=== PATIENT | male | born 1960 | race Caucasian/White ===

== ENCOUNTER 2018-09-10 10:37 | Outpatient (CLI) | payer OTHER, SELFPAY ==
[2018-09-10 12:16] LABS: Anion Gap 13.2 mmol/L (3-11); BUN 13 mg/dL (7-18); CO2 24.8 mmol/L (21.0-32.0); Calcium 8.8 mg/dL (8.5-10.1); Chloride 101 mmol/L (98-107); Cholesterol 111 mg/dL (50-200); Glucose 84 mg/dL (70-100); HDL Cholesterol 40 mg/dL (40-60); LDL CHOLESTEROL 62 mg/dL (<100); Potassium 3.9 mmol/L (3.5-5.1); Sodium 139 mmol/L (136-145); Triglyceride 40 mg/dL (30-150)
[2018-09-12 11:36] LABS: HIV-1/2 Ag & Ab Screen Negative (NEGAT)
[2018-09-13 12:14] LABS: Hepatitis C Ab w Rflx HCV PCR Negative (NEGAT)
== END 2018-09-10 10:57 ==
PROVIDERS: PCP Nurse Practitioner Family; Visit Provider Nurse Practitioner Family
DX: E78.5 Hyperlipidemia, unspecified (principal); Z13.1 Encounter for screening for diabetes mellitus; Z11.59 Encounter for screening for other viral diseases; Z11.4 Encounter for screening for human immunodeficiency virus [HIV]
CPT/HCPCS: 36415; 80048; 80061; 83721; 86803; 87389

== ENCOUNTER 2020-01-09 09:34 | Outpatient (CLI) | payer OTHER, SELFPAY ==
[2020-01-10 18:04] LABS: COVID-19 RT-PCR Result NEGATIVE (Negative)
== END 2020-01-09 09:54 ==
PROVIDERS: PCP Nurse Practitioner Family; Visit Provider Nurse Practitioner Family
DX: Z11.59 Encounter for screening for other viral diseases (principal)
CPT/HCPCS: U0003

== ENCOUNTER 2020-02-14 01:17 | Outpatient (CLI) | payer OTHER, SELFPAY ==
[2020-02-14 13:27] LABS: Anion Gap 11.4 mmol/L (3-11); BUN 14 mg/dL (7-18); CO2 26.6 mmol/L (21.0-32.0); CREATININE 0.89 mg/dL (0.70-1.30); Calculated LDL 59 mg/dL (<100); Chloride 106 mmol/L (98-107); Cholesterol 108 mg/dL (<200); Glucose 90 mg/dL (74-106); HDL Cholesterol 37 mg/dL (40-60); Potassium 4.3 mmol/L (3.5-5.1); Sodium 144 mmol/L (136-145); Triglyceride 62 mg/dL (<150)
== END 2020-02-14 01:37 ==
PROVIDERS: PCP Nurse Practitioner Family; Visit Provider Nurse Practitioner Family
DX: E78.5 Hyperlipidemia, unspecified (principal); Z13.1 Encounter for screening for diabetes mellitus
CPT/HCPCS: 36415; 80048; 80061

== ENCOUNTER 2020-03-13 03:54 | Outpatient (CLI) | payer OTHER, SELFPAY ==
[2020-03-14 10:25] LABS: Lyme Ab w Rflx to Lyme Confirm Negative (Negative)
== END 2020-03-13 04:14 ==
PROVIDERS: PCP Nurse Practitioner Family; Visit Provider Nurse Practitioner Family
DX: R21 Rash and other nonspecific skin eruption (principal)
CPT/HCPCS: 36415; 86618

== ENCOUNTER 2021-10-24 04:27 | Outpatient (CLI) | payer OTHER, SELFPAY ==
[2021-10-24 07:18] LABS: HCT 43.8 % (40.0-50.0); HGB 14.2 g/dL (13.5-17.5); MCH 30.5 pg (27.0-33.0); MCHC 32.4 % (32.0-36.0); MCV 94.2 fL (80-95); MPV 9.3 fL (8.0-11.0); Platelet Count 257 10^3/uL (130-400); RBC 4.65 10^6/uL (4.36-5.78); RDW 12.3 % (11.8-14.1); RDW-SD 42.7 fL; WBC 6.77 10^3/uL (4.4-10.8)
[2021-10-24 07:57] LABS: ALT 48 U/L (16-63); AST 28 U/L (15-37); Alkaline Phosphatase 96 U/L (46-116); Anion Gap 4.9 mmol/L (3-11); BUN 15 mg/dL (7-18); Bilirubin, Total 0.8 mg/dL (0.2-1.0); CO2 31.1 mmol/L (21.0-32.0); CREATININE 0.8 mg/dL (0.70-1.30); Calcium 8.8 mg/dL (8.5-10.1); Calculated LDL 50 mg/dL (<100); Chloride 105 mmol/L (98-107); Cholesterol 95 mg/dL (<200); Glucose 93 mg/dL (74-106); HDL Cholesterol 36 mg/dL (40-60); Potassium 4.3 mmol/L (3.5-5.1); Sodium 141 mmol/L (136-145); Total Protein 6.8 g/dL (6.4-8.2); Triglyceride 47 mg/dL (<150)
== END 2021-10-24 04:28 | disposition home or self-care (01) ==
LOC: LBO 04:27
PROVIDERS: PCP Nurse Practitioner Family; Visit Provider Nurse Practitioner Family
DX: Z51.81 Encounter for therapeutic drug level monitoring (principal); E78.5 Hyperlipidemia, unspecified; I25.10 Atherosclerotic heart disease of native coronary artery without angina pectoris; Z13.1 Encounter for screening for diabetes mellitus
CPT/HCPCS: 36415; 80053; 80061; 85027

== ENCOUNTER 2022-10-30 03:07 | Outpatient (CLI) | payer OTHER, SELFPAY ==
[2022-10-30 07:22] LABS: Abs Immature Grans 0.02 10^3/uL (0.0-0.06); Absolute Basophil Count 0.05 10^3/uL (0.0-0.2); Absolute Eosinophil Count 0.17 10^3/uL (0.0-0.7); Absolute Lymphocyte Count 2.13 10^3/uL (1.2-3.4); Absolute Monocyte Count 0.69 10^3/uL (0.1-0.8); Absolute Neutrophil Count 3.53 10^3/uL (1.2-6.7); Basophils % 0.8; Eosinophils % 2.6; HCT 44.4 % (40.0-50.0); HGB 14.8 g/dL (13.5-17.5); Immature Grans % 0.3; Lymphocytes % 32.3; MCH 31.3 pg (27.0-33.0); MCHC 33.3 % (32.0-36.0); MCV 94 fL (80-95); MPV 9.5 fL (8.0-11.0); Monocytes % 10.5; Neutrophils % 53.5; Platelet Count 233 10^3/uL (130-400); RBC 4.73 10^6/uL (4.36-5.78); RDW 12.9 % (11.8-14.1); RDW-SD 44.1 fL; WBC 6.59 10^3/uL (4.4-10.8)
[2022-10-30 08:10] LABS: Hemoglobin A1C 6.1 % (<5.7)
[2022-10-30 08:24] LABS: BUN 15 mg/dL (7-18); CREATININE 0.9 mg/dL (0.70-1.30); Calcium 9.1 mg/dL (8.5-10.1); Calculated LDL 52 mg/dL (<100); Chloride 107 mmol/L (98-107); Cholesterol 107 mg/dL (<200); Estimated GFR 96.57 (mL/min/1.73m2); Glucose 105 mg/dL (74-106); HDL Cholesterol 47 mg/dL (40-60); Potassium 4.2 mmol/L (3.5-5.1); Sodium 145 mmol/L (136-145); Triglyceride 43 mg/dL (<150)
== END 2022-10-30 03:08 | disposition home or self-care (01) ==
LOC: LBO 03:07
PROVIDERS: PCP Nurse Practitioner Family; Visit Provider Nurse Practitioner Family
DX: R73.01 Impaired fasting glucose (principal); E78.5 Hyperlipidemia, unspecified; I25.10 Atherosclerotic heart disease of native coronary artery without angina pectoris; Z79.899 Other long term (current) drug therapy; Z51.81 Encounter for therapeutic drug level monitoring
CPT/HCPCS: 36415; 80048; 80061; 83036; 85025

== ENCOUNTER → 2023-06-02 01:09 | Outpatient (CLI) | payer OTHER, SELFPAY ==
--- NOTE | 2023-06-02 06:45 | DI.CT_ITS ---
Exam(s) CT ABDOMEN PELVIS W EXAM: CT ABDOMEN PELVIS W CLINICAL HISTORY: unintentional wt loss,lower abd bulge,r63.4,r19.00 TECHNIQUE: Imaging Protocol: Axial computed tomography images with coronal and sagittal reformatted images were created and reviewed CONTRAST MATERIAL: Intravenous: Omnipaque 350 Contrast volume:100 mL Oral: Yes COMPARISON: No exams were available for comparison FINDINGS: ABDOMEN: Lung Bases: Normal where visualized. Liver: Normal density. No measurable mass. Portal, Superior Mesenteric, and Splenic Veins: Unremarkable. Gallbladder and Biliary Tract: No radiodense calculus or dilation. Pancreas: Normal density, no abnormal calcifications or inflammatory process. Spleen: Normal. Adrenals: No masses seen. Kidneys: Normal size, contour and axis. Nonobstructing right nephrolithiasis. No evidence of obstruc tive uropathy on the left. There is a 1.3 cm simple cyst in the superior pole of the right kidney. There are few tiny hypodensities in the right kidney which are too small for further characterization . Abdominal Aorta: Abdominal portion non-dilated. Atherosclerosis. Bowel: No obstruction or bowel wall thickening. There is no evidence of appendicitis. Peritoneal Cavity: No ascites, collection or mesenteric inflammatory response. No free air. Lymph Nodes: Within normal limits. Bones: Within normal limits for the patient's age. Soft Tissues: There is a fat containing left inguinal hernia. There does appear to be a small right inguinal hernia containing a knuckle of unremarkable small bowel. PELVIS: Bladder: Symmetric distention, no gross wall thickening. Reproductive Organs: Enlarged prostate gland. Lymph Nodes: Within normal limits. Bones: Within normal limits for the patient's age. IMPRESSION: 1. No acute abdominal or pelvic process. 2. Right nephrolithiasis. No evidence of obstructive uropathy. 3. Enlarged prostate gland. RADIATION DOSE DELIVERED: Total DLP DATA REPOSITORY: All CT scans at this facility are submitted to the National Radiology Data Registry (NRDR) Dose Index Registry (DIR) with the [employer] (ACR). RADIATION OPTIMIZATION: All CT scans at this facility use at least one of these dose optimization te chniques: automated exposure control; mA and/or kV adjustment per patient size (includes targeted exa ms where dose is matched to clinical indication); or iterative reconstruction.
--- NOTE | 2023-06-02 07:52 | DI.RAD_ITS ---
Exam(s) XR CHEST 2V PA LATERAL EXAM: XR CHEST 2V PA LATERAL CLINICAL HISTORY: unintentional wt loss,r63.4 TECHNIQUE: 2D digital imaging was performed of the chest. Two images were obtained. PA and lateral views were obtained. COMPARISON: CR CHEST 2 VIEWS PA,LAT from 06/12/2014 FINDINGS: MEDIASTINUM: Normal. HEART: Normal. PULMONARY VASCULATURE: Normal. LUNGS: Clear. PLEURAL SPACE: No pleural effusion or pneumothorax. BONE:Within normal limits for the patient's age. OTHER FINDINGS:Normal. IMPRESSION: No acute pulmonary findings. DATA REPOSITORY: RADIATION DOSE DELIVERED:
[2023-06-02] MEDS: Barium Sulfate 2% W/V-Berry Smoothie 450 ML BTL PO (08:25)
[2023-06-02 08:33] LABS: Abs Immature Grans 0.02 10^3/uL (0.0-0.06); Absolute Basophil Count 0.05 10^3/uL (0.0-0.2); Absolute Eosinophil Count 0.11 10^3/uL (0.0-0.7); Absolute Lymphocyte Count 1.82 10^3/uL (1.2-3.4); Absolute Monocyte Count 0.65 10^3/uL (0.1-0.8); Absolute Neutrophil Count 6.49 10^3/uL (1.2-6.7); Basophils % 0.5; Eosinophils % 1.2; HCT 44.6 % (40.0-50.0); HGB 14.8 g/dL (13.5-17.5); Immature Grans % 0.2; Lymphocytes % 19.9; MCH 30.8 pg (27.0-33.0); MCHC 33.2 % (32.0-36.0); MCV 93 fL (80-95); MPV 9.2 fL (8.0-11.0); Monocytes % 7.1; Neutrophils % 71.1; Platelet Count 249 10^3/uL (130-400); RBC 4.81 10^6/uL (4.36-5.78); RDW 12.4 % (11.8-14.1); RDW-SD 42.5 fL; WBC 9.14 10^3/uL (4.4-10.8)
[2023-06-02 08:48] LABS: Bilirubin Negative (Negative); Blood Negative (Negative); Clarity Clear (Clear); Glucose Negative (Negative); Ketones Negative (Negative); Leukocyte Esterase Negative (Negative); Nitrite Negative (Negative); Specific Gravity 1.025 (1.005-1.025); Urobilinogen 0.2 mg/dL (Up to 0.2)
[2023-06-02 08:57] LABS: ALT 47 U/L (16-63); AST 30 U/L (15-37); Alkaline Phosphatase 103 U/L (46-116); Anion Gap 8.3 mmol/L (3-11); BUN 15 mg/dL (7-18); Bilirubin, Total 0.5 mg/dL (0.2-1.0); C-Reactive Protein 0.24 mg/dL (0.0-0.3); CO2 28.7 mmol/L (21.0-32.0); CREATININE 0.8 mg/dL (0.70-1.30); Calcium 9.4 mg/dL (8.5-10.1); Chloride 102 mmol/L (98-107); Estimated GFR 100.06 (mL/min/1.73m2); Glucose 101 mg/dL (74-106); Potassium 4.1 mmol/L (3.5-5.1); Sodium 139 mmol/L (136-145); TSH (W/Ref FT4) 3.14 uIU/mL (0.36-3.74); Total Protein 7.7 g/dL (6.4-8.2)
[2023-06-02] MEDS: Normal Saline - Diluent 50 ML VIAL IJ (09:47)
[2023-06-02] MEDS: Normal Saline Flush 10 ML SYR IVP (09:48)
[2023-06-02] MEDS: Omnipaque 350 MG/ML 100 ML BTL IJ (09:48)
[2023-06-03 10:06] LABS: Hepatitis C Ab w Rflx HCV PCR Negative (Negative)
[2023-06-03 10:34] LABS: HIV-1/2 Ag & Ab Screen Negative (Negative)
== END ==
PROVIDERS: PCP Nurse Practitioner Family; Visit Provider Nurse Practitioner Family
DX: R63.4 Abnormal weight loss (principal); Z11.4 Encounter for screening for human immunodeficiency virus [HIV]; E03.9 Hypothyroidism, unspecified; Z11.59 Encounter for screening for other viral diseases; Z12.5 Encounter for screening for malignant neoplasm of prostate; R19.09 Other intra-abdominal and pelvic swelling, mass and lump; N20.0 Calculus of kidney; N40.1 Benign prostatic hyperplasia with lower urinary tract symptoms
CPT/HCPCS: 36415; 80053; 84153; 86803; 87389; 71046; 74177; 81003; 84443; 85025; 86140; J3490

== ENCOUNTER 2023-10-27 03:59 | Outpatient (CLI) | payer OTHER, SELFPAY ==
[2023-10-27 13:12] LABS: ESR 1 mm/hr (0-20)
== END 2023-10-27 04:00 | disposition home or self-care (01) ==
LOC: LBO 04:01
PROVIDERS: Nurse Practitioner Family; Absent Provider Nurse Practitioner Adult Health; PCP Nurse Practitioner Adult Health; Visit Provider Nurse Practitioner Adult Health
DX: R63.4 Abnormal weight loss (principal)
CPT/HCPCS: 36415; 85652

== ENCOUNTER 2024-03-11 01:14 | Outpatient (CLI) | payer OTHER, SELFPAY ==
[2024-03-11 08:43] LABS: Calculated LDL 56 mg/dL (<100); Cholesterol 113 mg/dL (<200); HDL Cholesterol 49 mg/dL (40-60); Triglyceride 42 mg/dL (<150)
== END 2024-03-11 01:15 | disposition home or self-care (01) ==
LOC: LBO 01:15
PROVIDERS: PCP Nurse Practitioner Adult Health; Referring Provider Nurse Practitioner Adult Health; Visit Provider Nurse Practitioner Adult Health
DX: I25.10 Atherosclerotic heart disease of native coronary artery without angina pectoris (principal); E78.5 Hyperlipidemia, unspecified
CPT/HCPCS: 36415; 80061

== ENCOUNTER 2025-01-09 03:15 | Outpatient (CLI) | payer OTHER, SELFPAY ==
[2025-01-09 07:36] LABS: Anion Gap 7.4 mmol/L (3-11); BUN 20 mg/dL (7-18); CO2 29.6 mmol/L (21.0-32.0); CREATININE 0.8 mg/dL (0.70-1.30); Calcium 9.2 mg/dL (8.5-10.1); Calculated LDL 49 mg/dL (<100); Chloride 103 mmol/L (98-107); Cholesterol 105 mg/dL (<200); Estimated GFR 98.83 (mL/min/1.73m2); Glucose 91 mg/dL (74-106); HDL Cholesterol 49 mg/dL (>or=40); Potassium 3.9 mmol/L (3.5-5.1); Sodium 140 mmol/L (136-145); Triglyceride 36 mg/dL (<150)
[2025-01-09 07:52] LABS: Hemoglobin A1C 5.8 % (<5.7)
== END 2025-01-09 03:16 | disposition home or self-care (01) ==
PROVIDERS: PCP Nurse Practitioner Adult Health; Referring Provider Nurse Practitioner Adult Health; Visit Provider Nurse Practitioner Adult Health
DX: E78.5 Hyperlipidemia, unspecified (principal); R73.01 Impaired fasting glucose; I25.10 Atherosclerotic heart disease of native coronary artery without angina pectoris
CPT/HCPCS: 36415; 80048; 80061; 83036

== ENCOUNTER 2025-04-15 11:15 | Inpatient (IN) | payer OTHER, SELFPAY ==
[2025-04-15] VITALS (12 sets, daily range): BP systolic 111–133; BP diastolic 65–83; PULSE 63–84; RESP 16–18; TEMP 36–37.1; O2SAT 94–99; BMI 19.8
--- NOTE | 2025-04-15 11:30 | DI.CT_ITS ---
Exam(s) CT ABDOMEN PELVIS W EXAM: CT ABDOMEN PELVIS W CLINICAL HISTORY: Left groin pain x 48 hrs. TECHNIQUE: Imaging Protocol: Axial computed tomography images with coronal and sagittal reformatted images were created and reviewed CONTRAST MATERIAL: Intravenous: Omnipaque-350 100cc Oral: None COMPARISON: CT CT ABDOMEN PELVIS W from 06/02/2023 FINDINGS: VISUALIZED LUNG BASES: No nodules nor pleural effusions evident. ABDOMEN: GI ABDOMINAL WALL: There is a left inguinal hernia which contains part of the sigmoid and there is an element of obstruction at this level with significant dilatation of the colon above this level and collapse of the sigmoid below this level. There is also some ascites in dependent aspect of the pelvis which is most probably related to this incarcerated appearing sigmoid. There is no obvious perforation at this time. No pneumatosis. There is no significant diverticular disease in the colon. However, the collapsed colon distal to the inguinal hernia has appearance of a possible colitis pattern. LIVER: There are no focal hepatic lesions evident. No dilated intrahepatic ducts. GALLBLADDER/BILIARY: No obvious gallbladder pathology. CBD is not dilated. PANCREAS: No evidence of pancreatic mass nor dilatation of the pancreatic duct. SPLEEN: Spleen is not enlarged. No obvious intrasplenic lesions. Splenic and portal veins are patent. ADRENALS: There are no significant adrenal masses. KIDNEYS:No cysts evident. No solid renal masses. No calculi nor hydronephrosis.. ABDOMINAL AORTA: Abdominal aorta is not enlarged. LYMPH NODES:There is no retroperitoneal nor paraaortic adenopathy. PELVIS: GI: No evidence of appendicitis. LYMPH NODES: There is no intrapelvic nor inguinal adenopathy. REPRODUCTIVE: Mildly enlarged prostate with lobulation projecting into the bladder with some enhancement. Requires further testing/serology consult. URINARY BLADDER: Bladder mass versus lobulated prostate. OSSEOUS: No fractures and no significant osseous lesions. IMPRESSION: 1. The main acute finding here is incarceration of the sigmoid in a large left inguinal hernia with an element of bowel obstruction at this level and some ascites in the dependent aspect of the pelvis. Surgical consultation is recommended. 2. There is mucosal/mural circumferential thickening of the rectosigmoid distal to the hernia which has a colitis appearance. This may or may not be related to the incarcerated sigmoid 3. There is an partially enhancing polypoid lesion projecting into the posterior urinary wall which is possibly lobulated prostate/possible prostate malignancy versus is urinary bladder wall malignancy. Recommend PSA testing and neurology consultation/is cos be. Pulmonary virtual Radiology report was reviewed. It appears that the critical findings on this case were called by the virtual Radiology radiologists to the ER provider. RADIATION DOSE DELIVERED: 318.9mGy.cm Total DLP DATA REPOSITORY: All CT scans at this facility are submitted to the National Radiology Data Registry (NRDR) Dose Index Registry (DIR) with the [employer] (ACR). RADIATION OPTIMIZATION: All CT scans at this facility use at least one of these dose optimization techniques: automated exposure control; mA and/or kV adjustment per patient size (includes targeted exams where dose is matched to clinical indication); or iterative reconstruction.
--- NOTE | 2025-04-15 11:51 | ED.GENADUL_ITS ---
Discharge Plan Disposition Patient Disposition: Admit to [facility] Condition: Serious Discharge Details Clinical Impression: Incarcerated left inguinal hernia, Bladder mass Attending Provider: Nikkie Ramon Primary Care Provider: Karely Ludwig ED Provider: Nick Villarreal Discharge Data Discharge Date/Time-TO BE ENTERED AT DEPARTURE: 04/15/25 14:59 HPI General Mode of arrival: ambulatory . Date/Time Provider Initiated Documentation: 04/15/25 11:26 . Limitations to Documentation: no limitations . Information obtained by: patient, RN notes reviewed and old records reviewed . HPI Narrative: 64-year-old male presents to the ER with a chief complaint of left inguinal pain and swelling which got worse on Thursday. He reports a history of an inguinal hernia however was at work and noticed that it had gotten larger and more firm he also is reporting some more proximal abdominal pain with palpation. He reports some constipation, no nausea vomiting. He has been taking 250 mg of Tylenol at home with little to no relief. Denies any problems urinating however he does have a history of BPH and has some hesitancy. Denies any fever or chills. He describes the pain as sharp. Does have a past medical history of hypertension, history of a CABG in 1995, BPH and kidney stones. Related Data Home Medications ?Medication ?Instructions ?Recorded ?Confirmed aspirin 81 mg chewable tablet 81 mg PO DAILY 11/08/12 04/15/25 (Aspirin Low-Strength) calcium carbonate (Tums) 200 mg PO DAILY PRN acid ref lux 11/01/21 04/15/25 blood-glucose meter #1 ea 11/07/22 01/12/25 atorvastatin 80 mg tablet See Rx Instructions .Route 0 01/12/25 04/15/25 .COMPLEX #90 tabs blood sugar diagnostic (Blood #100 ea 01/12/25 5 Glucose Test strips) lancets #100 ea 01/12/25 01/12/25 metoprolol tartrate 25 mg tablet See Rx Instructions . Route 01/12/25 04/15/25 .COMPLEX #180 tabs Previous Rx's ?Medication ?Instructions ?Recorded blood-glucose meter #1 ea 11/07/22 atorvastatin 80 mg tablet See Rx Instructions .Route 0 01/12/25 .COMPLEX #90 tabs blood sugar diagnostic (Blood #100 ea 05/22/25 Glucose Test strips) lancets #100 ea 01/12/25 metoprolol tartrate 25 mg tablet See Rx Instructions . Route 01/12/25 .COMPLEX #180 tabs Allergies Allergy/AdvReac Type Severity Reaction Status Date / Time Shield Soap Allergy Intermediate Hands Uncoded 04/15/25 11:22 Break Out General Stated Complaint: Abd Prob LUIS: 3 Review of Systems Constitutional Constitutional: Reports as per HPI Cardiovascular Cardiovascular: Denies chest pain Gastrointestinal Gastrointestinal: Reports as per HPI, Reports abdominal pain, Reports constipation and Reports other (Left inguinal canal mass) Genitourinary Genitourinary: Reports as per HPI and Reports urinary hesitancy Exam Narrative Exam Narrative: Constitutional: Alert and oriented x3. Appears stated age. Normal body habitus. Head: Normocephalic, no trauma. Eyes: Pupils PERRL, Red reflex noted, EOM's intact. Eyelids symmetrical without lesions, discharge, or swelling. ENT: Bilateral TM's WNL, External ear normal to inspection, no mastoid TTP, swelling, or erythema, Nasal turbinates WNL, no nasal discharge. Normal dentition, Posterior pharynx WNL, no exudate. Chest: RRR, Normal S1, S2, distal pulses intact. Resp: Lungs clear to auscultation bilaterally, no wheezes, rales, or rhonchi. Abdomen: Soft, non-distended, Normoactive bowel sounds all 4 quads. Has approximately 4 cm x 3 cm left inguinal firm mass to palpation, unable to be reduced, it does slightly disappear and left testicle swells with sitting up. Musculoskeletal: Normal gait, Moves all 4 extremities without difficulty. Skin: No suspicious rashes or lesions. Capillary refill less than 2 sec. Neurologic: Cranial nerves II-XII intact. Alert and oriented x 3. Motor: No deficits noted. Sensory: Intact bilaterally all 4 extremities. Hematologic/Lymphatic: No ecchymosis, no lymphadenopathy. Course Vital Signs Vital signs: Vital Signs Temperature 36.7 C 04/15/25 11:18 Pulse 83 04/15/25 11:18 Respiratory Rate 16 04/15/25 11:18 Blood Pressure 119/76 04/15/25 11:18 Pulse Oximetry 96 04/15/25 11:18 Temperature 36.7 C 04/15/25 11:48 Temperature Source Oral 04/15/25 11:48 Pulse 83 04/15/25 11:48 Respiratory Rate 16 04/15/25 11:48 Blood Pressure 119/76 04/15/25 11:48 Pulse Oximetry 96 04/15/25 11:48 Oxygen Delivery Method Room Air 04/15/25 11:48 Oxygen Flow Rate 0 04/15/25 11:48 Pain Level 4 04/15/25 11:48 Medical Decision Making 64-year-old male presents to the ER with a chief complaint of left inguinal pain and swelling which got worse on Thursday. He reports a history of an inguinal hernia however was at work and noticed that it had gotten larger and more firm he also is reporting some more proximal abdominal pain with palpation. He reports some constipation, no nausea vomiting. He has been taking 250 mg of Tylenol at home with little to no relief. Denies any problems urinating however he does have a history of BPH and has some hesitancy. Denies any fever or chills. He describes the pain as sharp. Does have a past medical history of hypertension, history of a CABG in 1995, BPH and kidney stones. Workup ordered including CBC CMP, lipase urinalysis CT abdomen pelvis with contrast. Differential diagnose includes not limited to inguinal hernia, incarcerated hernia, 1342: Received call for critical result from [facility] rad Dr. Fagan who reports left inguinal hernia with possible incarceration and obstruction containing sigmoid colon, Discussed CT results with patient who verbalized understanding last ate around 9:00 this morning. Instructed on n.p.o. status. 1354: Dr. Ramon here at for patient eval. Patient transported to the OR for emergent surgery for incarcerated bowel. Patient remained hemodynamically stable throughout the remainder of his stay. This text was generated using Tueeation system, please disregard any oddities of phrase or misspellings. Medical Records Medical records reviewed: Yes I reviewed the patient's medical records. Imaging Data Radiologic Study: Imaging: CT Scan Radiologist's impression: Preliminary vRad impression: 1. Large left inguinal hernia containing vessels and portion of colon near junction of descending colon with sigmoid colon with evidence of narrowing and wall thickening of colon at level of the hernia opening/mouth or neck, and dilation of proximal colon containing gas, fluid, and stool proximal to the hernia, with the colon distal to the hernia including sigmoid colon, rectum appearing decompressed, empty. Also evidence of vessels within, fluid, stranding, haziness, wall thickening of hernia. Findings are compatible with incarceration, possible strangulation of colon within left inguinal hernia with bowel obstruction of colon at the level of the left inguinal hernia. Wall/mucosal thickening of rectum, rectosigmoid, sigmoid colon extending to level of left inguinal hernia. Correlate for ischemic colitis or other process of rectum and sigmoid colon. 2. Small amount of pelvic fluid, ascites. 3. Wall thickening versus lack of distension urinary bladder. However, evidence of rounded mixed density, partially calcified or partially enhancing 1.4 cm polypoid or rounded lesion projecting intraluminal along posterior urinary bladder wall suspicious for malignant neoplasm or other process. Blood clot, mucosal fold, or other process possible. Follow-up, urology consultation, cystoscopy recommended. 4. Evidence of narrowing, flattening of left renal vein, duodenum, and portion of a left mesenteric vein extending to superior mesenteric vein, as they cross over anterior aspect of abdominal aorta between abdominal aorta, superior mesenteric artery, and near right renal artery. Correlate for superior mesenteric artery compression disorders such as superior mesenteric artery syndrome (Vijay syndrome), nutcracker syndrome (renal vein entrapment syndrome), or other process. 5. Atherosclerotic disease with suspicion for narrowing, stenosis of origins of the vessels off of the abdominal aorta including renal arteries, mesenteric arteries, celiac trunk/axis. 6. Please see body of report for additional findings. COMMENTS: THIS REPORT CONTAINS FINDINGS THAT MAY BE CRITICAL TO [facility]. The exam findings were verbally communicated by me to NICK VILLARREAL via telephone conference at 1:42 PM EDT on 04/15/2025. The findings were acknowledged and understood. Thank you for allowing us to participate in the care of your patient. Dictated and Authenticated by: Edwin Mattson MD Lab Data Lab results reviewed: Yes I reviewed the patient's lab results. Labs: Laboratory Tests Range/Units 04/15/25 04/15/25 11:40 12:30 WBC (4.4-10.8) 10^3/uL 10.55 RBC (4.36-5.78) 10^6/uL 5.04 Hgb (13.5-17.5) g/dL 15.5 Hct (40.0-50.0) % 46.7 MCV (80-95) fL 93 MCH (27.0-33.0) pg 30.8 MCHC (32.0-36.0) % 33.2 RDW (11.8-14.1) % 12.6 Plt Count (130-400) 10^3/uL 245 MPV (8.0-11.0) fL 9.4 Immature Gran % % 0.3 Neutrophils % % 78.5 Lymphocytes % % 13.1 Monocytes % % 7.1 Eosinophils % % 0.5 Basophils % % 0.5 Nucleated RBC % (0.0-0.3) % 0.0 Absolute Neutrophils (1.2-6.7) 10^3/uL 8.29 H Absolute Lymphocytes (1.2-3.4) 10^3/uL 1.38 Absolute Monocytes (0.1-0.8) 10^3/uL 0.75 Absolute Eosinophils (0.0-0.7) 10^3/uL 0.05 Absolute Basophils (0.0-0.2) 10^3/uL 0.05 Sodium (136-145) mmol/L 141 Potassium (3.5-5.1) mmol/L 3.4 L Chloride (98-107) mmol/L 102 Carbon Dioxide (21.0-32.0) mmol/L 31.4 Anion Gap (3-11) mmol/L 7.6 BUN (7-18) mg/dL 13 Creatinine (0.70-1.30) mg/dL 0.9 Est GFR (CKD-EPI 2020) (mL/min/1.73m2) 95.37 Glucose (74-106) mg/dL 119 H Calcium (8.5-10.1) mg/dL 9.6 Magnesium (1.8-2.4) mg/dL 2.2 Total Bilirubin (0.2-1.0) mg/dL 0.9 AST (15-37) U/L 33 ALT (16-63) U/L 41 Alkaline Phosphatase (46-116) U/L 116 Total Protein (6.4-8.2) g/dL 8.0 Albumin (3.4-5.0) g/dL 4.5 Urine Color (Yellow) Yellow Urine Clarity (Clear) Clear Urine pH (5-8) 5.0 Ur Specific Wagoner (1.005-1.025) >= 1.030 H Urine Protein (Neg-Trace) mg/dL Negative Urine Ketones (Negative) mg/dL 40 H Urine Blood (Negative) Trace-intact H Urine Nitrite (Negative) Negative Urine Bilirubin (Negative) Small H Urine Urobilinogen (Up to 0.2) mg/dL 0.2 Ur Leukocyte Esterase (Negative) Negative Urine RBC (0-2) HPF 3-5 H Urine WBC (0-5) HPF 0-2 Ur Epithelial Cells (Negative) HPF Rare Urine Crystals (Negative) HPF Negative Urine Bacteria (Negative) HPF Few Urine Casts (Negative) LPF Negative Urine Mucus (Negative) Moderate Ur Culture Indicated? No Urine Glucose (Negative) mg/dL Negative Quality:SDOH Health Related Social Needs: Health related social needs education Health related social needs details na PFSH All Active Problems (Updated 04/15/25 @ 14:59 by Nick Villarreal NP) Bladder mass (Acute) Incarcerated left inguinal hernia (Acute) Incarcerated left inguinal hernia (Acute) Non-recurrent inguinal hernia of left side with obstruction (Acute) BPH w urinary obs/LUTS (Chronic) Inguinal hernia bilateral, non-recurrent (Acute ~05/2023) IFG (impaired fasting glucose) (Acute) ASCVD (arteriosclerotic cardiovascular disease) (Chronic 09/17/12) SD, 3v CABG 1995 at age 35; high intensity statin Erectile dysfunction (Chronic 09/17/12) Gastroesophageal reflux disease (Chronic 01/03/15) Hyperlipidemia, unspecified (Chronic 09/17/12) 01/2020 labs: adequate response to high intensity statin therapy (ASCVD), continue Medical History Right nephrolithiasis (~05/2023) Enlarged prostate (~05/2023) CT Vertigo (01/03/16) 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 Carotid stenosis Parkinson disease Sister Diabetes Maternal Grandmother Breast cancer Social History Smoking/Tobacco Use Status: Never Smoking risk assessment performed?: Yes Alcohol Intake: current Alcohol Intake frequency: holidays/special occasions only Alcohol type: beer Drug use: Never Substance use type: does not use Adopted: No Caregiver/Support person: No Foster care: No Household members: none Housing: house Number of Children: 0 number of grandchildren: 0 Communication Needs: None Education Level: high school Do you need help understanding health information?: Rarely current occupation: [employer] Operator Pets and animals: No Sexually active: No Do you think of yourself as: straight/heterosexual Current gender identity: male What is your relationship status?: How often do you talk on the phone with friends or family?: once per week How often do you get together with friends or relatives?: once per week How often do you attend christianity or latter-day services?: decline to answer Do you belong to any clubs or organized social groups?: no Panel score (0-1 are the most socially isolated patients): 0 What type of physical activity do you participate in: running Duration: 15-30 minutes/day Frequency: 1-2 times per week Valeri/Restoration: Zoroastrianism Seatbelt use: always Helmet use: Yes Helmet use: never Drive intox or ride w/intox cdl a driver: No Water heater temp set <120 deg: Yes Working smoke detector in home: Yes Carbon monox detector in home: Yes Do you feel safe at home: Yes Do you feel safe in your relationship?: Yes
[2025-04-15 11:55] LABS: Abs Immature Grans 0.03 10^3/uL (0.0-0.06); HCT 46.7 % (40.0-50.0); HGB 15.5 g/dL (13.5-17.5); Immature Grans % 0.3 %; MCH 30.8 pg (27.0-33.0); MCHC 33.2 % (32.0-36.0); MCV 93 fL (80-95); MPV 9.4 fL (8.0-11.0); Platelet Count 245 10^3/uL (130-400); RBC 5.04 10^6/uL (4.36-5.78); RDW 12.6 % (11.8-14.1); RDW-SD 42.9 fL; WBC 10.55 10^3/uL (4.4-10.8)
[2025-04-15 12:04] LABS: ALT 41 U/L (16-63); AST 33 U/L (15-37); Albumin 4.5 g/dL (3.4-5.0); Alkaline Phosphatase 116 U/L (46-116); Anion Gap 7.6 mmol/L (3-11); BUN 13 mg/dL (7-18); Bilirubin, Total 0.9 mg/dL (0.2-1.0); CO2 31.4 mmol/L (21.0-32.0); Calcium 9.6 mg/dL (8.5-10.1); Chloride 102 mmol/L (98-107); Estimated GFR 95.37 (mL/min/1.73m2); Glucose 119 mg/dL (74-106); Magnesium 2.2 mg/dL (1.8-2.4); Potassium 3.4 mmol/L (3.5-5.1); Sodium 141 mmol/L (136-145); Total Protein 8.0 g/dL (6.4-8.2)
[2025-04-15] MEDS: Normal Saline Flush 10 ML SYR IVP ×4 (12:27→20:16)
[2025-04-15] MEDS: Omnipaque 350 MG/ML 100 ML BTL IJ (12:27)
[2025-04-15] MEDS: Normal Saline - Diluent 50 ML VIAL IJ (12:28)
[2025-04-15] MEDS: ACETAMINOPHEN 1,000 MG/100 ML BAG 400 MG IVPB (12:47)
[2025-04-15 12:58] LABS: Glucose Negative (Negative)
[2025-04-15 13:05] LABS: WBC 0-2 HPF (0-5)
[2025-04-15 13:06] LABS: C & S Indicated? No
--- NOTE | 2025-04-15 14:02 | DI.VRAD_ITS ---
PROCEDURE INFORMATION: Exam: CT Abdomen And Pelvis With Contrast Exam date and time: 04/15/2025 12:14 PM Age: 64 years old Clinical indication: Abdominal pain; Localized; Left TECHNIQUE: Imaging protocol: Computed tomography of the abdomen and pelvis with contrast. COMPARISON: CT ABDOMEN PELVIS W 06/02/2023 10:09 AM FINDINGS: Lungs: Visualized portions lung bases included appear clear bilaterally. Liver: Normal. No mass. Gallbladder and biliary ducts: Possible fold or Phrygian cap configuration. No calcific stone seen of gallbladder. Mild prominence common duct, main/central intrahepatic bile ducts, similar to prior study. Pancreas: Visualization of pancreatic duct without marked dilation. Pancreas otherwise grossly unremarkable. Spleen: Spleen unremarkable. Adrenal glands: Adrenals unremarkable. Kidneys and ureters: Chronic small rounded partially exophytic hypodense lesion upper outer right kidney possibly cyst, appears similar to 06/02/2023. Stomach and bowel: Stomach appears mostly empty, decompressed. Wall thickening versus lack of distension stomach. Perhaps tiny diverticulum of terminal ileum region. Dilation of colon containing gas and fluid proximal to the left inguinal hernia with stripping, decompression or emptiness sigmoid colon and rectum distal to the left inguinal hernia. Appendix: No acute appendicitis seen. Intraperitoneal space: Small amount of pelvic fluid, ascites. No free intraperitoneal air seen. Vasculature: Atherosclerotic disease. Plaque with suspicion for narrowing, stenosis of origins of the vessels off of the abdominal aorta including renal arteries, mesenteric arteries, celiac trunk/axis. No aneurysm seen of abdominal aorta. Evidence of narrowing, flattening of left renal vein, duodenum, and portion of a left mesenteric vein extending to superior mesenteric vein, as they cross over anterior aspect of abdominal aorta between abdominal aorta, superior mesenteric artery, and near right renal artery. Correlate for superior mesenteric artery compression disorders such as superior mesenteric artery syndrome (Vijay syndrome), nutcracker syndrome (renal vein entrapment syndrome), or other process. Lymph nodes: Scattered small lymph nodes, nonspecific. Urinary bladder: Urinary bladder appears mostly empty, partly filled. Wall thickening versus lack of distension urinary bladder. However, evidence of rounded mixed density, partially calcified or partially enhancing 1.4 cm polypoid or rounded lesion projecting intraluminal along posterior urinary bladder wall suspicious for malignant neoplasm or other process. Blood clot, mucosal fold, or other process possible. Follow-up, urology consultation, cystoscopy recommended. Reproductive: Prostate appears enlarged, heterogeneous. Seminal vesicles unremarkable. Bones/joints: Curvature, degenerative changes spine. Soft tissues: Large left inguinal hernia containing vessels and portion of colon near junction of descending colon with sigmoid colon with evidence of narrowing and wall thickening of colon at level of the hernia opening/mouth or neck, and dilation of proximal colon containing gas, fluid, and stool proximal to the hernia, with the colon distal to the hernia including sigmoid colon, rectum appearing decompressed, empty. Also evidence of vessels within, fluid, stranding, haziness, wall thickening of hernia. Findings are compatible with incarceration, possible strangulation of colon within left inguinal hernia with bowel obstruction of colon at the level of the left inguinal hernia. Wall/mucosal thickening of rectum, rectosigmoid, sigmoid colon extending to level of left inguinal hernia. IMPRESSION: 1. Large left inguinal hernia containing vessels and portion of colon near junction of descending colon with sigmoid colon with evidence of narrowing and wall thickening of colon at level of the hernia opening/mouth or neck, and dilation of proximal colon containing gas, fluid, and stool proximal to the hernia, with the colon distal to the hernia including sigmoid colon, rectum appearing decompressed, empty. Also evidence of vessels within, fluid, stranding, haziness, wall thickening of hernia. Findings are compatible with incarceration, possible strangulation of colon within left inguinal hernia with bowel obstruction of colon at the level of the left inguinal hernia. Wall/mucosal thickening of rectum, rectosigmoid, sigmoid colon extending to level of left inguinal hernia. Correlate for ischemic colitis or other process of rectum and sigmoid colon. 2. Small amount of pelvic fluid, ascites. 3. Wall thickening versus lack of distension urinary bladder. However, evidence of rounded mixed density, partially calcified or partially enhancing 1.4 cm polypoid or rounded lesion projecting intraluminal along posterior urinary bladder wall suspicious for malignant neoplasm or other process. Blood clot, mucosal fold, or other process possible. Follow-up, urology consultation, cystoscopy recommended. 4. Evidence of narrowing, flattening of left renal vein, duodenum, and portion of a left mesenteric vein extending to superior mesenteric vein, as they cross over anterior aspect of abdominal aorta between abdominal aorta, superior mesenteric artery, and near right renal artery. Correlate for superior mesenteric artery compression disorders such as superior mesenteric artery syndrome (Vijay syndrome), nutcracker syndrome (renal vein entrapment syndrome), or other process. 5. Atherosclerotic disease with suspicion for narrowing, stenosis of origins of the vessels off of the abdominal aorta including renal arteries, mesenteric arteries, celiac trunk/axis. 6. Please see body of report for additional findings. COMMENTS: THIS REPORT CONTAINS FINDINGS THAT MAY BE CRITICAL TO PATIENT CARE. The exam findings were verbally communicated by me to NICK VILLARREAL via telephone conference at 1:42 PM EDT on 04/15/2025. The findings were acknowledged and understood. Dictated and Authenticated by: Edwin Mattson MD. Orderin Skip Lainez MD
--- NOTE | 2025-04-15 14:28 | ANES.PREOP_ITS ---
General Info Date of Service Date Performed: 04/15/25 Height: 5 ft 8 in Weight: 59.1 kg Body Mass Index (BMI): 19.8 Surgical Procedure: Operation Date: 04/15/25 14:20 Proposed Procedure Side Surgeon p Hernia Inguinal Laparoscopic Not Applicable Nikkie Ramon MD Meds Allergies and Home Medications Allergies Allergy/AdvReac Type Severity Reaction Status Date / Time Shield Soap Allergy Intermediate Hands Uncoded 04/15/25 11:22 Break Out Home Medication ?Medication ?Instructions ?Recorded aspirin 81 mg chewable tablet 81 mg PO DAILY 11/08/12 (Aspirin Low-Strength) calcium carbonate (Tums) 200 mg PO DAILY PRN acid ref lux 11/01/21 blood-glucose meter #1 ea 11/07/22 atorvastatin 80 mg tablet See Rx Instructions .Route 0 01/12/25 .COMPLEX #90 tabs blood sugar diagnostic (Blood #100 ea 01/12/25 Glucose Test strips) lancets #100 ea 01/12/25 metoprolol tartrate 25 mg tablet See Rx Instructions . Route 01/12/25 .COMPLEX #180 tabs Current Visit Medications: Current Medications Generic Name Dose Route Start Last Admin Trade Name Freq PRN Reason Stop Dose Admin IV Miscellaneous Supplies 1 each 04/15/25 11:45 Iv Access-Emergency Dept IV DIRECTED DYLAN Iohexol 100 ml 04/15/25 12:30 04/15/25 12:27 Omnipaque 350 Mg/Ml 100 Ml Btl IJ 05/15/25 23:59 100 ml DIRECTED DYLAN Administration Sodium Chloride 0 ml 04/15/25 11:34 Normal Saline Flush 10 Ml Syr IVP PRN PRN Sodium Chloride 0 ml 04/15/25 20:00 Normal Saline Flush 10 Ml Syr IVP BID DYLAN Sodium Chloride 0 ml 04/15/25 11:34 Normal Saline 10 Ml Vial IJ DIRECTED PRN Sodium Chloride 0 ml 04/15/25 12:18 04/15/25 12:27 Normal Saline Flush 10 Ml Syr IVP 10 ml PRN PRN Administration Sodium Chloride 50 ml 04/15/25 12:30 04/15/25 12:28 Normal Saline - Diluent 50 Ml Vial IJ 50 ml DIRECTED DYLAN Administration PFSH Active Problems Active Problems: Problem Status Onset Code BPH w urinary obs/LUTS Chronic N40.1, N13.8 Inguinal hernia bilateral, non-recurrent Acute ~05/2023 K40.20 IFG (impaired fasting glucose) Acute R73.01 ASCVD (arteriosclerotic cardiovascular disease) Chronic 09/17/12 I25.10 Erectile dysfunction Chronic 09/17/12 N52.9 Gastroesophageal reflux disease Chronic 01/03/15 K21.9 Hyperlipidemia, unspecified Chronic 09/17/12 E78.5 Medical History Medical History Right nephrolithiasis (~05/2023) Enlarged prostate (~05/2023) CT Vertigo (01/03/16) Probable BPPV Surgical History Surgical History Tonsillectomy Colonoscopy - MAC (04/24/17) Coronary Artery Bypass Gaft (CABG) 1995 Tobacco Smoking/Tobacco Use Status: Never Passive smoking exposure: No Alcohol Alcohol Intake: current Alcohol intake frequency: holidays/special occasions only Alcohol type: beer Substance Use Substance use: Never Substance use type: does not use Vital Signs and Lab Results Vital Signs Most Recent Vital Signs in EMR: Most Recent Vital Signs Temp Pulse Resp BP Pulse Ox 36.2 C L 67 16 111/65 96 04/15/25 12:57 04/15/25 12:57 04/15/25 12:57 04/15/25 12:57 04/15/25 11:48 Lab Results 04/15/25 11:40 04/15/25 11:40 Complete Blood Count: 2 WBC, (4.4-10.8) 10.55 10^3/uL Today, 11:40 RBC, (4.36-5.78) 5.04 10^6/uL Today, 11:40 Hgb, (13.5-17.5) 15.5 g/dL Today, 11:40 Hct, (40.0-50.0) 46.7 % Today, 11:40 Plt Count, (130-400) 245 10^3/uL Today, 11:40 Complete Metabolic Panel: 2 Sodium, (136-145) 141 mmol/L Today, 11:40 Potassium, (3.5-5.1) 3.4 mmol/L L Today, 11:40 Chloride, (98-107) 102 mmol/L Today, 11:40 Carbon Dioxide, (21.0-32.0) 31.4 mmol/L Today, 11:40 BUN, (7-18) 13 mg/dL Today, 11:40 Creatinine, (0.70-1.30) 0.9 mg/dL Today, 11:40 Est GFR (CKD-EPI 2020), (mL/min/1.73m2) 95.37 Today, 11:40 Magnesium, (1.8-2.4) 2.2 mg/dL Today, 11:40 Calcium, (8.5-10.1) 9.6 mg/dL Today, 11:40 Albumin, (3.4-5.0) 4.5 g/dL Today, 11:40 Glucose, (74-106) 119 mg/dL H Today, 11:40 Liver Function Panel: 2 ALT, (16-63) 41 U/L Today, 11:40 AST, (15-37) 33 U/L Today, 11:40 Coagulation Panel: 2 INR Pending Today, 13:53 PT Pending Today, 13:53 APTT Pending Today, 13:53 Anesthesia Assessment and Plan Anesthesia History Personal History: No History of Anesthesia Complications Family History: No Family History of Anesthesia Complications Exercise Tolerance Exercise Tolerance: Metabolic Equivalents>4 Pertinent Negatives Pertinent Negatives: Other (Takes raciel's for heartburn and occasional reflux) Cardiac & Pulmonary Exam Cardiac Exam: Normal S1/S2 Heart Sounds Pulmonary Exam: Clear Bilateral Breath Sounds Implantable Cardiac Device Does patient have a Pacemaker or an ICD?: No Airway Exam Known Difficult Airway: No Mallampati Class: 2 Mouth Opening: Normal (> 3cm) Thyromental Distance: Greater than 3 cm Neck Range of Motion: Full ROM Neck Circumference: Normal Teeth Condition: Normal Dentition ASA Classification ASA Score: ASA 3 Emergency Case?: Yes NPO Status NPO Status: NPO Small Non-Fatty Meal >6 hours Anesthesia Plan Resuscitation Status: Full Code Anesthesia Technique: General Anesthesia Airway Planned: Endotracheal Tube Monitors Used: Standard Monitors and SedLine
--- NOTE | 2025-04-15 14:35 | W.PM.HP.N ---
Date of service: 04/15/25 Time of Service: 14:36 Assessment and Plan Assessment and plan (1) Non-recurrent inguinal hernia of left side with obstruction: Status: Acute Assessment and plan: Incarcerated L inguinal hernia with obstruction. Duration of incarceration raises concern for possible strangulation. Plan preperitoneal laparoscopic approach reduction of hernia and evaluation of viability of sigmoid colon. If viable, will reduce and repair hernia with mesh. If nonviable will open and do a primary repair of hernia and resect the strangulated colon segment. He will need colostomy if resection is performed due to the obstruction and dilation of the more proximal colon. Discussed surgery plan risks, benefits, alternatives, and expectations. Discussed specifically the risks of the pain, bleeding, infection, damage to surrounding structures, need for more procedures. Discussed resection, colostomy, and colostomy reversal in the future. Discussed mesh vs no mesh for repair, and the risk of hernia recurrence after repair. Postoperative expectations and weight lifting restriction were discussed. No dietary restrictions postoperatively. The patient asked good questions and verbalized understanding. Bumping emergency to OR now. (2) Incarcerated left inguinal hernia: Status: Acute Assessment and plan: repair as noted above (3) ASCVD (arteriosclerotic cardiovascular disease): Status: Chronic Assessment and plan: ASA 81mg increases risk for bleeding. Will continue metoprolol perioperatively History of Present Illness History of Present Illness Chief Complaint: incarcerated obstructed left inguinal hernia Narrative: 64yo M who had worsening severe pain in the L groin in the last 2-3 days. He was doing a lot of squatting and strenuous work on and noticed his hernia bulge out and get stuck. normally he can reduce it but he was not able. The pain is sharp, intermittent, and tight. He had a small BM this morning and thinks he passed some gas as well. Hernia normally reduces but it had not and the pain was increasing so he came in. In er CT was done and shows obstructed colon due to incarcerated sigmoid colon. Denies fever or chills. CABG in 1995. Sees a mechanical manufacturing engineer every year and says his heart has been well since then. he is active in his job without dyspnea. no lung problems. Nonsmoker. No chest pain. no blood thinner. had hhis tonsils out years ago but otherwise no operations besides that and the cabg. Takes metoprolol 25mg BID, asa 81mg daily, atorvastatin daily. He is prediabetic he says and lost weight to help with that. Review of Systems All systems reviewed & are unremarkable except as noted in HPI and below PFSH All Active Problems (Updated 04/15/25 @ 14:43 by Nikkie Ramon MD) Incarcerated left inguinal hernia (Acute) Non-recurrent inguinal hernia of left side with obstruction (Acute) BPH w urinary obs/LUTS (Chronic) Inguinal hernia bilateral, non-recurrent (Acute ~05/2023) IFG (impaired fasting glucose) (Acute) ASCVD (arteriosclerotic cardiovascular disease) (Chronic 09/17/12) MS, 3v CABG 1995 at age 35; high intensity statin Erectile dysfunction (Chronic 09/17/12) Gastroesophageal reflux disease (Chronic 01/03/15) Hyperlipidemia, unspecified (Chronic 09/17/12) 01/2020 labs: adequate response to high intensity statin therapy (ASCVD), continue Medical History Right nephrolithiasis (~05/2023) Enlarged prostate (~05/2023) CT Vertigo (01/03/16) 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 Carotid stenosis Parkinson disease Sister Diabetes Maternal Grandmother Breast cancer Social History Smoking/Tobacco Use Status: Never Smoking risk assessment performed?: Yes Alcohol Intake: current Alcohol Intake frequency: holidays/special occasions only Alcohol type: beer Drug use: Never Substance use type: does not use Adopted: No Caregiver/Support person: No Foster care: No Household members: none Housing: house Number of Children: 0 number of grandchildren: 0 Communication Needs: None Education Level: high school Do you need help understanding health information?: Rarely current occupation: [employer] Pets and animals: No Sexually active: No Do you think of yourself as: straight/heterosexual Current gender identity: male What is your relationship status?: How often do you talk on the phone with friends or family?: once per week How often do you get together with friends or relatives?: once per week How often do you attend confucianism or anabaptism services?: decline to answer Do you belong to any clubs or organized social groups?: no Panel score (0-1 are the most socially isolated patients): 0 What type of physical activity do you participate in: running Duration: 15-30 minutes/day Frequency: 1-2 times per week Valeri/Synagogue: Nondenominational Seatbelt use: always Helmet use: Yes Helmet use: never Drive intox or ride w/intox tow truck driver: No Water heater temp set <120 deg: Yes Working smoke detector in home: Yes Carbon monox detector in home: Yes Do you feel safe at home: Yes Do you feel safe in your relationship?: Yes Meds Allergies and Home Medications Allergies Allergy/AdvReac Type Severity Reaction Status Date / Time Shield Soap Allergy Intermediate Hands Uncoded 04/15/25 11:22 Break Out Home Medications ?Medication ?Instructions ?Recorded ?Confirmed ?Type aspirin 81 mg chewable tablet 81 mg PO DAILY 11/08/12 04/15/25 History (Aspirin Low-Strength) calcium carbonate (Tums) 200 mg PO DAILY PRN acid reflux 11/01/21 04/15/25 History blood-glucose meter #1 ea 11/07/22 01/12/25 Rx atorvastatin 80 mg tablet See Rx Instructions .Route 01/12/25 04/15/25 Rx .COMPLEX #90 tabs blood sugar diagnostic (Blood #100 ea 01/12/25 01/12/25 Rx Glucose Test strips) lancets #100 ea 01/12/25 01/12/25 Rx metoprolol tartrate 25 mg tablet See Rx Instructions .Route 01/12/25 04/15/25 Rx .COMPLEX #180 tabs Exam Narrative Exam Narrative: awake, NAD eomi, MMM midline trachea, neck is symmetric PULM: normal resp effort, equal chest rise with respiration, no wheezing audible CARDIAC: normal PMI, no jvd, regular rate, normal perfusion abdomen is nondistended on exam. Incarcerated L inguinal hernia without skin change. Tender to palp. extremities are without deformity, normal movement of all four extremities speech is clear and coherent mood and affect are congruent, no focal neurological deficits skin without rash Results Imaging Abdomen CT scan report/results: report reviewed and image reviewed Labs 04/15/25 11:40 04/15/25 11:40 Labs: Laboratory Results - last 24 hr 04/15/25 04/15/25 11:40 12:30 WBC 10.55 RBC 5.04 Hgb 15.5 Hct 46.7 MCV 93 MCH 30.8 MCHC 33.2 RDW 12.6 Plt Count 245 MPV 9.4 Immature Gran % 0.3 Neutrophils % 78.5 Lymphocytes % 13.1 Monocytes % 7.1 Eosinophils % 0.5 Basophils % 0.5 Nucleated RBC % 0.0 Absolute Neutrophils 8.29 H Absolute Lymphocytes 1.38 Absolute Monocytes 0.75 Absolute Eosinophils 0.05 Absolute Basophils 0.05 Sodium 141 Potassium 3.4 L Chloride 102 Carbon Dioxide 31.4 Anion Gap 7.6 BUN 13 Creatinine 0.9 Est GFR (CKD-EPI 2020) 95.37 Glucose 119 H Calcium 9.6 Magnesium 2.2 Total Bilirubin 0.9 AST 33 ALT 41 Alkaline Phosphatase 116 Total Protein 8.0 Albumin 4.5 Urine Color Yellow Urine Clarity Clear Urine pH 5.0 Ur Specific [place] >= 1.030 H Urine Protein Negative Urine Ketones 40 H Urine Blood Trace-intact H Urine Nitrite Negative Urine Bilirubin Small H Urine Urobilinogen 0.2 Ur Leukocyte Esterase Negative Urine RBC 3-5 H Urine WBC 0-2 Ur Epithelial Cells Rare Urine Crystals Negative Urine Bacteria Few Urine Casts Negative Urine Mucus Moderate Ur Culture Indicated? No Urine Glucose Negative Last Vital Signs Temp 97.2 F L 04/15/25 12:57 Pulse 67 04/15/25 12:57 Resp 16 04/15/25 12:57 BP 111/65 04/15/25 12:57 Pulse Ox 96 04/15/25 11:48 Time Spent Time spent with Patient: 40-54 minutes Time was spent: preparing to see the patient(eg.review tests), ordering medications,tests, procedures, referring, communicating with other health regular senior care provider, indepentently interpreting results and counseling the patient
[2025-04-15 15:12] LABS: INR 1.1 (0.9-1.1); PTT Activated 24.7 sec (20.6-30.2); Prothrombin Time 11.3 sec (9.1-11.1)
[2025-04-15] MEDS: Lactated Ringers 1,000 ML 75 ML IV (15:13)
[2025-04-15] MEDS: ceFAZolin 2 GM/50 ML BAG 100 GM (15:20)
[2025-04-15] MEDS: Bupivacaine 0.5% Pres-Free W/EPI 30 ML VIAL (15:59)
--- NOTE | 2025-04-15 17:27 | W.PM.OP ---
Operative Note Operative Note PRE-OP DIAGNOSIS: incarcerated left inguinal hernia with colonic obstruction POST-OP DIAGNOSIS: same PROCEDURE: 1. open reduction of incarcerated left inguinal hernia with suture repair of inguinal floor. 2. diagnostic laparoscopy for evaluation of colon viability 3. laparoscopic repair of left inguinal hernia SURGEON: Nikkie Ramon LOST AND FOUND CLERK: Bacilio Quiroz ANESTHESIA TYPE: Local By Surgeon and General LMA/ETT Refer to Anesthesia Record ESTIMATED BLOOD LOSS: 50 PATHOLOGY: none sent COMPLICATIONS: None Implants: large size BARD 3D MAX Mid mesh Findings: Sigmoid colon dusky while incarcerated. Hernia reduced and the sigmoid was reexamined after it was allowed to reperfuse. Confirmed viable by diagnostic laparoscopy. Procedure Description: This is a 64yo M who presented with acute incarceration of a left inguinal hernia. He had colonic obstruction on CT. Viability of the colon was uncertain. We discussed a laparoscopic repair, with or without mesh, with possible colon resection and colostomy if the colon was found to be nonviable. Discussed procedure risks, benefits, alternatives and expectations. He asked questions and verbalized understanding of the plan. Informed consent was obtained and he was taken to the operating room emergently. In the operating room he was placed supine on the operating table. SCDs were placed and all pressure points were padded appropriately general anesthesia was induced. A pierson catheter was placed. The abdomen was clipped prepped and draped in the usual sterile fashion. Timeout was performed. The left inguinal hernia was tightly incarcerated and irreducible. A horizontally oriented incision was made between the location of the inguinal ligament and the pubic tubercle on the left. Subcutaneous tissues were divided with cautery. The external oblique fibers were obliterated by the hernia. Careful dissection through the attenuated external oblique fibers and the hernia sac was done bluntly with a burlisher clamp and cautery. The hernia was examined. It was a direct hernia medial to the cord. The sac was opened and edema fluid was released. The sigmoid colon was noted to be violaceous in color but grossly viable. There was no necrosis. The muscle fibers of the inguinal floor were opened to accommodate a reduction of the sigmoid colon back into the abdomen. The inguinal floor was then repaired using 2-0 Prolene suture in [id number] fashion. The external oblique aponeurosis was then carefully freed and closed using a running 2-0 Vicryl suture. Tomy's fascia was closed using a running 3-0 Vicryl suture. The skin was closed with santino. Next, laparoscopic approach was used to repair the hernia. Local anesthetic was infiltrated into the skin and subcutaneous tissues at each port access site. A midline vertical incision was made below the umbilicus and the subcutaneous tissue was dissected down to the level of the fascia using cautery. The fascia was retracted to the left of the midline. The anterior rectus sheath was opened sharply and muscle-splitting technique was used to retract the muscle fibers over the peritoneum. A peon clamp was used to access the preperitoneal space down to the pubic bone. A Spacemaker balloon was inserted and directed at the pubic bone. Spacemaker balloon was inflated and deflated and the port advanced into the preperitoneal space. Insufflation to 15 mmHg was accomplished with carbon dioxide gas. Laparoscopy revealed no injury to the underlying structures. The preperitoneal space was well-developed with the balloon dissector. Two 5 mm ports were placed in the midline under direct visualization. The pubic bone was cleared. The lateral wall was cleared. Two hernia sacs were noted, one high along the cord as an indirect hernia sac. The indirect hernia size was moderate. Medial to the inferior epigastric vessels a large direct hernia defect was noted. There was evidence of suture repair to the midpoint of the attentuated muscle in this area. The sac was reduced farther back into the preperitoneal space to accomodate mesh repair. The indirect sac was dissected bluntly from the cord structures. The peritoneum was confirmed to be low and posterior in the preperitoneal space. A large sized 3D max MID mesh was selected for the repair. The mesh was introduced to the preperitoneal space and positioned over the direct and indirect spaces. It was tacked to the iliopubic tract at 3 points. There was adequate coverage of the direct and indirect space. There was no evidence of obturator or femoral hernia from this view. The preperitoneal space was desufflated under direct visualization and the mesh lay flat at the repair site. A RUQ, R mid abdomen and RLQ 5mm ports were placed. The abdomen was insufflated. The sigmoid colon was then able to be reexamined from inside the abdomen. It demonstrated viability with no areas of ischemia or necrosis. Improvement in its appearance had occurred over the duration of the case. The insufflation was let out of the abdomen and the ports were removed. The anterior rectus sheath at the umbilicus was reapproximated with an 0 Vicryl [id number]-df-axhuw stitch. The skin at each port site was closed with santino. The skin was washed and dried. 4 x 4 gauze and tape were applied to the incisions. All sponge and instrument counts were correct at the end the case. The patient tolerated the procedure well. He extubated in the operating room and transferred to the recovery room in stable condition. Pierson catheter was left in place. There were no complications. Date of Procedure: 04/15/25
--- NOTE | 2025-04-15 18:19 | W.PC.ACHO ---
Registration Status: ADM IN Primary Language: Preferred Language: Ukrainian ED Information & Data Chief Complaint Abd Prob 04/15/25 11:57 Chief Complaint Abd Prob 04/15/25 11:56 Triage Note sharp left groin pain since 04/15/25 11:18 Thursday, worse this morning. worried about having a hernia Medical / Surgical History (Updated 04/15/25 @ 14:59 by Fatou Valdivia NP) Right nephrolithiasis (~05/2023) Enlarged prostate (~05/2023) Vertigo (01/03/16) (Updated 10/14/18 @ 15:01 by Wendy Zuniga NP) Tonsillectomy Colonoscopy - MAC (04/24/17) Coronary Artery Bypass Gaft (CABG) Most Recent Vital Signs Temperature 37.1 C 04/15/25 17:45 Temperature Source Tympanic 04/15/25 12:57 Pulse 76 04/15/25 17:45 Pulse Rhythm Regular 04/15/25 18:08 Respiratory Rate 16 04/15/25 17:45 Respiratory Effort Normal 04/15/25 18:08 Respiratory Depth Normal 04/15/25 18:08 Respiratory Pattern Normal 04/15/25 18:08 Blood Pressure 133/71 04/15/25 17:45 Blood Pressure Mean 80 04/15/25 12:57 Pulse Oximetry 98 04/15/25 17:45 Respiratory End-tidal CO2 38 04/15/25 17:45 Oxygen Delivery Method Room Air 04/15/25 17:45 Oxygen Flow Rate 0 04/15/25 17:45 Pain Level 0 04/15/25 17:45 Allergies Shield Soap Allergy (Intermediate, Uncoded 04/15/25 11:22) Hands Break Out Active Medications Generic Name Dose Route Start Last Admin Trade Name Freq PRN Reason Stop Dose Admin Iohexol 100 ml 04/15/25 12:30 04/15/25 12:27 Omnipaque 350 Mg/Ml 100 Ml Btl IJ 05/15/25 23:59 100 ml DIRECTED DYLAN Administration IV IV Catheter Type [Right Peripheral IV Forearm] IV Catheter Type [Right Saline Lock Antecubital] IV Catheter Type [Left Forearm Saline Lock ] IV Catheter Gauge [Right 20 Forearm] IV Catheter Gauge [Right 18 Antecubital] IV Catheter Gauge [Left 20 Forearm] Diet Orders Category Date Time Status Regular/Normal [DIET] Nutrition 04/15/25 Dinner Active npo [Nothing Per Oral] [DIET] Nutrition 04/15/25 13:53 Active Diagnostics 04/15/25 04/15/25 04/15/25 Range/Units 14:50 12:30 11:40 WBC 10.55 (4.4-10.8) 10^3/uL RBC 5.04 (4.36-5.78) 10^6/uL Hgb 15.5 (13.5-17.5) g/dL Hct 46.7 (40.0-50.0) % MCV 93 (80-95) fL MCH 30.8 (27.0-33.0) pg MCHC 33.2 (32.0-36.0) % RDW 12.6 (11.8-14.1) % Plt Count 245 (130-400) 10^3/uL MPV 9.4 (8.0-11.0) fL Immature Gran % 0.3 % Neutrophils % 78.5 % Lymphocytes % 13.1 % Monocytes % 7.1 % Eosinophils % 0.5 % Basophils % 0.5 % Nucleated RBC % 0.0 (0.0-0.3) % Absolute Neutrophils 8.29 H (1.2-6.7) 10^3/uL Absolute Lymphocytes 1.38 (1.2-3.4) 10^3/uL Absolute Monocytes 0.75 (0.1-0.8) 10^3/uL Absolute Eosinophils 0.05 (0.0-0.7) 10^3/uL Absolute Basophils 0.05 (0.0-0.2) 10^3/uL PT 11.3 H (9.1-11.1) sec INR 1.1 (0.9-1.1) APTT 24.7 (20.6-30.2) sec Sodium 141 (136-145) mmol/L Potassium 3.4 L (3.5-5.1) mmol/L Chloride 102 (98-107) mmol/L Carbon Dioxide 31.4 (21.0-32.0) mmol/L Anion Gap 7.6 (3-11) mmol/L BUN 13 (7-18) mg/dL Creatinine 0.9 (0.70-1.30) mg/dL Est GFR (CKD-EPI 2020) 95.37 (mL/min/1.73m2) Glucose 119 H (74-106) mg/dL Calcium 9.6 (8.5-10.1) mg/dL Magnesium 2.2 (1.8-2.4) mg/dL Total Bilirubin 0.9 (0.2-1.0) mg/dL AST 33 (15-37) U/L ALT 41 (16-63) U/L Alkaline Phosphatase 116 (46-116) U/L Total Protein 8.0 (6.4-8.2) g/dL Albumin 4.5 (3.4-5.0) g/dL Urine Color Yellow (Yellow) Urine Clarity Clear (Clear) Urine pH 5.0 (5-8) Ur Specific [place] >= 1.030 H (1.005-1.025) Urine Protein Negative (Neg-Trace) mg/dL Urine Ketones 40 H (Negative) mg/dL Urine Blood Trace-intact H (Negative) Urine Nitrite Negative (Negative) Urine Bilirubin Small H (Negative) Urine Urobilinogen 0.2 (Up to 0.2) mg/dL Ur Leukocyte Esterase Negative (Negative) Urine RBC 3-5 H (0-2) HPF Urine WBC 0-2 (0-5) HPF Ur Epithelial Cells Rare (Negative) HPF Urine Crystals Negative (Negative) HPF Urine Bacteria Few (Negative) HPF Urine Casts Negative (Negative) LPF Urine Mucus Moderate (Negative) Ur Culture Indicated? No Urine Glucose Negative (Negative) mg/dL Intake and Output - 24 Hour Total 04/15/25 11:15 thru 04/15/25 18:08 Intake Total 800 Balance 800 Weight 59.1 kg Intake: IV 800 Oral 0 Other: Urine Color Pale Urine Appearance Clear Emesis Description None Urinary Catheter Urinary Catheter Date of 04/15/25 Insertion [Urethral (Lopez)] Time of insertion [Urethral ( :25 Lopez)] Falls Risk Assessment History of Falls No History 04/15/25 18:08 Contributing Factors No Factors 04/15/25 18:08 Ambulatory Aids Independent 04/15/25 18:08 Tubes/Lines W/no contributing factors 04/15/25 18:08 Gait Evaluation No gait disturbance 04/15/25 18:08 Cognition No cognitive impairment 04/15/25 11:48 Fall Total Score 10 04/15/25 18:08 Level of Risk Standard/Low Risk 04/15/25 18:08 Problems (Updated 04/15/25 @ 14:59 by Fatou Valdivia NP) Incarcerated left inguinal hernia (Acute) Incarcerated left inguinal hernia (Acute) Non-recurrent inguinal hernia of left side with obstruction (Acute) ASCVD (arteriosclerotic cardiovascular disease) (Chronic 09/17/12) v v v v v v v v v Sending and/or Receiving Nurses: Please use comment section below to note any information pertinent to the patient hand-off not included above. Information / Comments: Report received by OR nurse (unable to obtain name.) @ [id number]. Report received from:
[2025-04-15] MEDS: PIPERACILLIN/TAZO 3.375 GM in Normal Saline 50 ML IVPB (18:27)
[2025-04-15] MEDS: Docusate Sodium 100 MG CAP PO (20:16)
--- NOTE | 2025-04-15 20:47 | W.ANESPOSTOP ---
Postoperative Evaluation Date, Time and Location Date Performed: 04/15/25 Time Performed: 20:47 Patient Location: Day Surgery Unit Vital Signs Most Recent Imported Vital Signs: Most Recent Vital Signs Temp Pulse Resp BP Pulse Ox 37.1 C 70 18 116/73 94 04/15/25 20:20 04/15/25 20:20 04/15/25 20:20 04/15/25 20:20 04/15/25 20:20 Pain Score Most Recent Pain Score: Most Recent Pain Score Pain Level [Left Lower Abdomen 5 04/15/25 12:56 ] Pain Level 5 04/15/25 20:20 Assessment Mental Status: Awake (Alert & Oriented to Patient Baseline) Airway and Respiratory Function: Patent airway with normal (patient baseline) respiratory exam Cardiovascular Function: Hemodynamically Stable Hydration Status: Adequately Hydrated Nausea & Vomiting: No Nausea or Vomiting Pain: Pain is tolerable per patient Peripheral Nerve Block: Patient did not receive a nerve block
[2025-04-16] MEDS: ACETAMINOPHEN 1,000 MG/100 ML BAG 400 MG IVPB ×5 (00:01→21:36)
[2025-04-16] MEDS: PIPERACILLIN/TAZO 3.375 GM in Normal Saline 50 ML IVPB ×4 (00:01→17:16)
[2025-04-16] MEDS: Lactated Ringers 1,000 ML 75 ML IV ×2 (01:42→14:47)
[2025-04-16 07:02] LABS: Abs Immature Grans 0.03 10^3/uL (0.0-0.06); HCT 35.2 % (40.0-50.0); HGB 11.9 g/dL (13.5-17.5); Immature Grans % 0.3 %; MCH 31.0 pg (27.0-33.0); MCHC 33.8 % (32.0-36.0); MCV 92 fL (80-95); MPV 9.7 fL (8.0-11.0); Platelet Count 195 10^3/uL (130-400); RBC 3.84 10^6/uL (4.36-5.78); RDW 12.6 % (11.8-14.1); RDW-SD 41.8 fL; WBC 10.45 10^3/uL (4.4-10.8)
[2025-04-16 07:11] LABS: Anion Gap 7.9 mmol/L (3-11); BUN 15 mg/dL (7-18); CO2 29.1 mmol/L (21.0-32.0); Calcium 8.5 mg/dL (8.5-10.1); Chloride 103 mmol/L (98-107); Estimated GFR 98.83 (mL/min/1.73m2); Glucose 124 mg/dL (74-106); Potassium 3.9 mmol/L (3.5-5.1); Sodium 140 mmol/L (136-145)
--- NOTE | 2025-04-16 08:23 | PDOC.CMIN ---
Date of service: 04/16/25 Time of Service: 08:23 Care Management Initial Assmt Initial Assessment Reason for Hospitalization: inguinal hernia Functional Status/Living Situation Patient Presentation: Bartolome was sitting up in bed chatting with his visitors when CM met with him. He was pleasant in interaction and easily engaged in conversation. Bartolome was admitted on 04/15/25 with an incarcerated inguinal hernia with obstruction and was taken to the OR last night, Fortunately the hernia was able to be repaired laparoscopically and no resection or ostomy was needed. Bartolome stated that he is a little sore but feels much better today. His diet will be advanced for dinner and, if tolerated, he may be able to discharge home tomorrow. Bartolome lives alone in a single family home in [facility]. He is employed at [employer] and does a lot of heavy lifting. Bartolome is independent at baseline and does not receive any community services. Town of Residence: [place] Resides with: Alone Significant Other/Family: Local Employment Status: Employed ([employer]) Instrumental Activities of Daily Living (ADLs): Independent Medications Medication Management: No Issues/Barriers identified Advance Directives Advance Directives: Do you have an Advance Directive: N 09/16/13, 09:52 AD On File at [facility]: N 09/16/13, 09:52 Date Asked 04/15/25 04/15/25, 11:25 AD Date Reviewed COLST On File at [facility] COLST Date Scanned Code Status Resuscitation Status Full Code Portal Pt does not currently have a portal and education provided: Yes Insurance Coverage/Financial Issues Insurance: [facility] Care Team Visit Care Team Role Provider Type Karely Ludwig NP Primary Care Provider NURSE PRACTITIONER Fatou Valdivia NP Emergency Provider NURSE PRACTITIONER Nikkie Ramon MD Admit Provider [facility] STAFF PHYSICIAN Attending Provider Discharge Potential Discharge Needs: Surgical F/U Appt Anticipated Barriers to Discharge: None Identified Patient/Family Education Needs: Review discharge instructions, discuss Ask Me Three Transportation: Private vehicle Plan: Anticipate Bartolome will be discharged home with no new services when medically ready. He will follow up with his surgeon and plan of care and will transport with a friend. CM will follow. Social Determinants of Health Screening Social Determinants of health last assessed in clinic: 04/16/25 Will the Patient Participate in the Screening?: Yes Do you worry about having a steady place to live?: no Problems where you live: no known problems In the past 12 months, have you had to go without electric, gas, oil or water in your home?: no 1. Within the past 12 months, we worried whether our food would run out before we got money to buy more.: Never true 2. Within the past 12 months, the food we bought just didn't last and we didn't have money to get more.: Never true Has lack of transportation kept you from medical appointments or from doing things needed for daily living?: no Has anyone in your life made you feel unsafe or unsupported?: no How hard is it for you to pay for the very basics like food, housing, medical care, and heating? Would you say it is:: Not hard at all Do you want help finding or keeping work or a job?: I do not need or want help If for any reason you need help with day-to-day activities such as bathing, preparing meals, shopping, managing finances, etc., do you get the help you need?: I don?t need any help How often do you feel lonely or isolated from those around you?: Rarely Do you speak a language other than Tunisian at home?: No Does the patient want assistance with any of the above?: No Health Related Social Needs Health related social needs: feeling lonely/isolated (Z60.8) Health related social needs details: na PFSH All Active Problems (Updated 04/15/25 @ 14:59 by Fatou Valdivia NP) Bladder mass (Acute) Incarcerated left inguinal hernia (Acute) Incarcerated left inguinal hernia (Acute) Non-recurrent inguinal hernia of left side with obstruction (Acute) BPH w urinary obs/LUTS (Chronic) Inguinal hernia bilateral, non-recurrent (Acute ~05/2023) IFG (impaired fasting glucose) (Acute) ASCVD (arteriosclerotic cardiovascular disease) (Chronic 09/17/12) [place], 3v CABG 1995 at age 35; high intensity statin Erectile dysfunction (Chronic 09/17/12) Gastroesophageal reflux disease (Chronic 01/03/15) Hyperlipidemia, unspecified (Chronic 09/17/12) 01/2020 labs: adequate response to high intensity statin therapy (ASCVD), continue Medical History Right nephrolithiasis (~05/2023) Enlarged prostate (~05/2023) CT Vertigo (01/03/16) 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 Carotid stenosis Parkinson disease Sister Diabetes Maternal Grandmother Breast cancer Social History Smoking/Tobacco Use Status: Never Smoking risk assessment performed?: Yes Alcohol Intake: current Alcohol Intake frequency: holidays/special occasions only Alcohol type: beer Drug use: Never Substance use type: does not use Adopted: No Caregiver/Support person: No Foster care: No Household members: none Housing: house Number of Children: 0 number of grandchildren: 0 Communication Needs: None Education Level: high school Do you need help understanding health information?: Rarely current occupation: [employer] Pets and animals: No Sexually active: No Do you think of yourself as: straight/heterosexual Current gender identity: male What is your relationship status?: How often do you talk on the phone with friends or family?: once per week How often do you get together with friends or relatives?: once per week How often do you attend hindu or episcopalian services?: decline to answer Do you belong to any clubs or organized social groups?: no Panel score (0-1 are the most socially isolated patients): 0 What type of physical activity do you participate in: running Duration: 15-30 minutes/day Frequency: 1-2 times per week Valeri/Islam: Anabaptist Seatbelt use: always Helmet use: Yes Helmet use: never Drive intox or ride w/intox local company intermodal truck driver: No Water heater temp set <120 deg: Yes Working smoke detector in home: Yes Carbon monox detector in home: Yes Do you feel safe at home: Yes Do you feel safe in your relationship?: Yes
[2025-04-16] MEDS: Docusate Sodium 100 MG CAP PO ×2 (08:34→19:56)
[2025-04-16] MEDS: Normal Saline Flush 10 ML SYR IVP ×6 (08:34→19:57)
[2025-04-16 08:37] VITALS: BP 101/62; PULSE 71; RESP 18; TEMP 37.3; O2SAT 95
[2025-04-16 10:39] VITALS: BP 124/62; PULSE 71; O2SAT 99
[2025-04-16] MEDS: Metoprolol 25 MG TAB PO ×2 (10:39→19:57)
--- NOTE | 2025-04-16 15:18 | W.PM.PROGNOT ---
Date of Service Date of service: 04/16/25 Time of Service: 15:18 Assessment and Plan Assessment and plan (1) Non-recurrent inguinal hernia of left side with obstruction: Status: Acute Assessment and plan: acutely incarcerated L inguinal hernia with colonic obstruction. Sigmoid colon reduced through open inguinal incision and viability confirmed. Lap repair of hernia completed with mesh, POD 1 today. Advance to regular diet discontinue pierson catheter saline lock IV fluids home meds reordered except for aspirin. Increased bruising and bleeding noted during surgery from aspirin use. SCDs for DVT ppx today, holding on dvt chemoprophylaxis due to bleeding noted during surgery and risk of post op bleed. I will start oral norco for pain relief tomorrow, continue current plan of care tonight. (2) Incarcerated left inguinal hernia: Status: Acute Assessment and plan: as above (3) ASCVD (arteriosclerotic cardiovascular disease): Status: Chronic Assessment and plan: continue home beta john. holding ASA for bleeding risk post op. (4) Hyperlipidemia, unspecified: Status: Chronic Assessment and plan: Atorvastatin on hold, nonessential med acutely (5) Gastroesophageal reflux disease: Status: Chronic Assessment and plan: Pantoprazole PO Subjective Subjective Interval history since last seen: Feels better than yesterday. Pain is controlled with medications. Sore in the middle of the abdomen especially. Able to ambulate this afternoon without assistance. Passed some flatus. Exam Narrative Exam Narrative: awake, NAD upright in chair normal resp effort normal perfusion abdomen is nondistended. incisions w gauze intact, clean and dry. umbilical dressing with nickel sized strike through. appropriate incisional ttp. Objective Last Vital Signs Temp 99.1 F 04/16/25 08:37 Pulse 71 04/16/25 10:39 Resp 18 04/16/25 08:37 BP 124/62 04/16/25 10:39 Pulse Ox 99 04/16/25 10:39 Laboratory Results - last 24 hr 04/16/25 06:30 WBC 10.45 RBC 3.84 L Hgb 11.9 L D Hct 35.2 L MCV 92 MCH 31.0 MCHC 33.8 RDW 12.6 Plt Count 195 MPV 9.7 Immature Gran % 0.3 Neutrophils % 82.3 Lymphocytes % 8.1 Monocytes % 9.2 Eosinophils % 0.0 Basophils % 0.1 Nucleated RBC % 0.0 Absolute Neutrophils 8.60 H Absolute Lymphocytes 0.85 L Absolute Monocytes 0.96 H Absolute Eosinophils 0.00 Absolute Basophils 0.01 Sodium 140 Potassium 3.9 Chloride 103 Carbon Dioxide 29.1 Anion Gap 7.9 BUN 15 Creatinine 0.8 Est GFR (CKD-EPI 2020) 98.83 Glucose 124 H Calcium 8.5 Time Spent with Patient Time Spent with Patient: <25 minutes Time was spent: preparing to see the patient(eg.review tests), ordering medications,tests, procedures, referring, communicating with other health personal care worker and counseling the patient
[2025-04-16 19:15] VITALS: BP 108/63; PULSE 51; RESP 16; TEMP 36.7; O2SAT 98
[2025-04-16 20:18] VITALS: RESP 16
[2025-04-17] MEDS: PIPERACILLIN/TAZO 3.375 GM in Normal Saline 50 ML IVPB ×3 (00:19→12:53)
[2025-04-17] MEDS: ACETAMINOPHEN 1,000 MG/100 ML BAG 400 MG IVPB ×3 (04:23→16:16)
--- NOTE | 2025-04-17 08:21 | CMPROGNOTE_ITS ---
Date of service: 04/17/25 Time of Service: 08:21 Care Management Progress Note Progress Note Text Progress Note Text: Jason was sitting up in bed eating lunch when CM met with him. He was pleasant and easy to engage in conversation. He is employed at [employer] and reports that his position involves significant heavy lifting. He will need a letter for his employer and is planning to have his friend bring him the FMLA paperwork he needs signed.In addition, he is not sure how long he will be out of work and would like information about community resources. CM will follow. Discharge Potential Discharge Needs: PCP F/U Appt and Surgical F/U Appt Anticipated Barriers to Discharge: None Identified Patient/Family Education Needs: Review discharge instructions, discuss Ask Me Three Transportation: Private vehicle Plan: Will need a letter for work. Anticipate Bartolome will be discharged home with no new services when medically ready. He will follow up with his surgeon and plan of care and will transport with a friend. CM will follow. Social Determinants of Health Screening Social Determinants of health last assessed in clinic: 04/17/25 Will the Patient Participate in the Screening?: Yes Do you worry about having a steady place to live?: no Problems where you live: no known problems In the past 12 months, have you had to go without electric, gas, oil or water in your home?: no 1. Within the past 12 months, we worried whether our food would run out before we got money to buy more.: Never true 2. Within the past 12 months, the food we bought just didn't last and we didn't have money to get more.: Never true Has lack of transportation kept you from medical appointments or from doing things needed for daily living?: no Has anyone in your life made you feel unsafe or unsupported?: no How hard is it for you to pay for the very basics like food, housing, medical care, and heating? Would you say it is:: Not hard at all Do you want help finding or keeping work or a job?: I do not need or want help If for any reason you need help with day-to-day activities such as bathing, preparing meals, shopping, managing finances, etc., do you get the help you need?: I don?t need any help How often do you feel lonely or isolated from those around you?: Rarely Do you speak a language other than Tajik at home?: No Does the patient want assistance with any of the above?: No Health Related Social Needs Health related social needs: feeling lonely/isolated (Z60.8) Health related social needs details: na
[2025-04-17 08:22] VITALS: BP 112/65; PULSE 56; RESP 17; TEMP 36.5; O2SAT 99
[2025-04-17] MEDS: Normal Saline Flush 10 ML SYR IVP ×3 (08:26→16:17)
[2025-04-17] MEDS: Metoprolol 25 MG TAB PO (08:26)
[2025-04-17] MEDS: Docusate Sodium 100 MG CAP PO (08:26)
--- NOTE | 2025-04-17 08:58 | W.PM.PROGNOT ---
Date of Service Date of service: 04/17/25 Time of Service: 08:58 Assessment and Plan Assessment and plan (1) Non-recurrent inguinal hernia of left side with obstruction: Status: Acute Assessment and plan: acutely incarcerated L inguinal hernia with colonic obstruction. Sigmoid colon reduced through open inguinal incision and viability confirmed. Lap repair of hernia completed with mesh, POD 2 today. more distended and increasing pain. norco 2 tabs every 4 hours prn pain. can give 1 tab for pain scores 1-4. PT consult. home tomorrow as long as he tolerates diet today and pain better controlled. dvt chemoppx. (2) Incarcerated left inguinal hernia: Status: Acute Assessment and plan: as above (3) ASCVD (arteriosclerotic cardiovascular disease): Status: Chronic Assessment and plan: continue home beta john. holding ASA for bleeding risk post op. (4) Hyperlipidemia, unspecified: Status: Chronic Assessment and plan: Atorvastatin on hold, nonessential med acutely (5) Gastroesophageal reflux disease: Status: Chronic Assessment and plan: Pantoprazole PO Subjective Subjective Interval history since last seen: pain has increased quite a bit since yesterday. Had trouble getting out of bed to use the restroom. Needed breakthrough medication fr pain. He is tolerating diet. appetite is marginal . lives alone. Exam Narrative Exam Narrative: awake, NAD recumbant in bed normal resp effort normal perfusion abdomen is mildly distended. incisions w santino intact, clean and dry. appropriate incisional ttp. Objective Last Vital Signs Temp 97.7 F 04/17/25 08:22 Pulse 56 L 04/17/25 08:22 Resp 17 04/17/25 08:22 BP 112/65 04/17/25 08:22 Pulse Ox 99 04/17/25 08:22 Time Spent with Patient Time Spent with Patient: <25 minutes Time was spent: preparing to see the patient(eg.review tests), ordering medications,tests, procedures, counseling the patient and care coordination
--- NOTE | 2025-04-17 13:43 | W.PM.DS.N ---
Date of service: 04/17/25 Time of Service: 13:45 DS: Diagnosis Discharge Diagnosis (1) Non-recurrent inguinal hernia of left side with obstruction: Status: Acute (2) Incarcerated left inguinal hernia: Status: Acute (3) ASCVD (arteriosclerotic cardiovascular disease): Status: Chronic (4) Hyperlipidemia, unspecified: Status: Chronic (5) Gastroesophageal reflux disease: Status: Chronic Discharge Plan Disposition Patient Disposition: Home Condition: Improving Discharge Details Reason For Visit: Incarcerated Obstructed L Inguinal Hernia Admit Date/Time: 04/15/25 17:20 Admit Provider: Nikkie Ramon Attending Provider: iNkkie Ramon Primary Care Provider: Karely Ludwig Hospital Course Hospital Course: Jason is 64 years old. He comes to the hospital with an incarcerated left inguinal hernia. He was brought to the operating room and underwent open reduction, followed by laparoscopic repair with a preperitoneal mesh. He did well after surgery, and his diet was advanced as he tolerated. He was discharged home with outpatient follow-up Home Meds and New Rx's Prescriptions: New tramadol 50 mg tablet 50 mg PO Q8H PRNQty: 9 0RF Rx Instructions: Take 1 tablet by mouth up to every 8 hours if needed for more severe pain. Continued calcium carbonate [Tums] 200 mg calcium (500 mg) tablet,chewable 200 mg PO DAILY PRN (Reason: acid reflux) (DME) blood-glucose meter Misc See Rx Instructions .ROUTE .MEDSUPPLY Qty: 1 0RF Rx Instructions: As directed to check blood glucose daily. No insulin. Dispense covered brand. atorvastatin 80 mg tablet See Rx Instructions .ROUTE .COMPLEX Qty: 90 3RF Dose Instruction: TAKE ONE TABLET BY MOUTH EVERY DAY Rx Instructions: TAKE ONE TABLET BY MOUTH EVERY DAY metoprolol tartrate 25 mg tablet See Rx Instructions .ROUTE .COMPLEX Qty: 180 3RF Dose Instruction: TAKE ONE TABLET BY MOUTH TWICE A DAY Rx Instructions: TAKE ONE TABLET BY MOUTH TWICE A DAY (DME) lancets Misc See Rx Instructions .ROUTE .MEDSUPPLY Qty: 100 3RF Rx Instructions: As directed to check blood glucose daily. No insulin. Dispense covered brand. (DME) Blood Glucose Test Strip See Rx Instructions .ROUTE .MEDSUPPLY Qty: 100 3RF Rx Instructions: As directed to check blood glucose daily. No insulin. Dispense covered brand. aspirin [Aspirin Low-Strength] 81 MG tablet,chewable 81 mg PO DAILY Discharge Instructions Instructions: Groin Hernia Repair, Laparoscopic Surgery Additional Instructions: Jason, I am glad you are doing well after repair of your hernia, and hopefully your transition home will be smooth and uneventful. As we discussed, starting as early as tonight, or at least sometime tomorrow, you should wash all of the incisions in the shower with warm soapy water. Pat them dry after you get out, and feel free to apply large Band-Aids if you find that more comfortable with your clothing. Alternatively, if the santino are not giving you any trouble, you do not need any particular dressing on top of the incisions. You may get some bruising over the next few days. That is extremely common, and nothing to worry about. If any of the incisions start turning bright red, or have any drainage, please let my office know. Please be careful with your exercise and lifting. You should be up and walking around. Going up and down steps is fine. A little bit of light walking more more each day is excellent. Keep your lifting less than 10 pounds, or about a gallon of milk. Will see how things look and how you are feeling during your office visit which is May 01 at 8 AM. Generally, we start to loosen up some of the restrictions at that point. As I mentioned, if you need more paperwork for your employer, we can also address that associated with the visit. If you need anything, or have any questions at all, please do not hesitate to call or ask at any time. Referrals: Quinten Rodriguez MD [ [facility] STAFF PHYSICIAN, Surgery] - 05/01/25 8:00 am Activity:: No heavy lifting Equipment/Supplies:: No Equipment Needed Diet:: As Tolerated DS: Summary Time Spent with Patient providing and/or coordinating discharge services: Less than 30 minutes Status at Discharge Functional status at discharge: independent ambulation Overall status at discharge: patient is progressing back to baseline Mental Status: mental status grossly normal Speech and Movement: speech and movement normal Mood: congruent mood Affect: normal affect Quality:SDOH Health Related Social Needs: Health related social needs lonely/isolated Health related social needs details na Health related social needs details: na Exam GI Other: Abdomen is soft and nondistended. Incisions are all clean. There are no signs of inflammation or irritation. Psych Mental Status: mental status grossly normal Speech and Movement: speech and movement normal Mood: congruent mood Affect: normal affect DS: Data Vitals/I&O Vitals and I&O: Vital Signs Temperature 97.7 F 04/17/25 08:22 Temperature Source Temporal Artery Scan 04/17/25 08:22 Pulse 56 L 04/17/25 08:22 Pulse Rhythm Regular 04/15/25 18:08 Respiratory Rate 17 04/17/25 08:22 Respiratory Effort Normal 04/15/25 18:08 Respiratory Depth Normal 04/15/25 18:08 Respiratory Pattern Normal 04/15/25 18:08 Blood Pressure 112/65 04/17/25 08:22 Blood Pressure Mean 80 04/17/25 08:22 Pulse Oximetry 99 04/17/25 08:22 Respiratory End-tidal CO2 38 04/15/25 17:45 Oxygen Delivery Method Room Air 04/17/25 08:22 Oxygen Flow Rate 0 04/17/25 08:22 Pain Level 5 04/17/25 08:22 Intake & Output 04/16/25 04/17/25 04/17/25 23:59 11:59 23:59 Intake Total 2971.25 / 3421.25 210 / 360 150 / 360 Output Total 1225 / 1725 600 / 600 Balance 1746.25 / 1696.25 -390 / -240 150 / -240 Intake: IV 2251.25 / 2701.25 210 / 360 150 / 360 Oral 720 / 720 Output: Urine 1225 / 1725 600 / 600 Other: Urine Color Pale Yellow Urine Appearance Clear Clear Urine Odor Normal None Stool Size Moderate Stool Characteristics Soft PFSH All Active Problems (Updated 04/15/25 @ 14:59 by Fatou Valdivia NP) Bladder mass (Acute) Incarcerated left inguinal hernia (Acute) Incarcerated left inguinal hernia (Acute) Non-recurrent inguinal hernia of left side with obstruction (Acute) BPH w urinary obs/LUTS (Chronic) Inguinal hernia bilateral, non-recurrent (Acute ~05/2023) IFG (impaired fasting glucose) (Acute) ASCVD (arteriosclerotic cardiovascular disease) (Chronic 09/17/12) [place], 3v CABG 1995 at age 35; high intensity statin Erectile dysfunction (Chronic 09/17/12) Gastroesophageal reflux disease (Chronic 01/03/15) Hyperlipidemia, unspecified (Chronic 09/17/12) 01/2020 labs: adequate response to high intensity statin therapy (ASCVD), continue Medical History Right nephrolithiasis (~05/2023) Enlarged prostate (~05/2023) CT Vertigo (01/03/16) 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 Carotid stenosis Parkinson disease Sister Diabetes Maternal Grandmother Breast cancer Social History Smoking/Tobacco Use Status: Never Smoking risk assessment performed?: Yes Alcohol Intake: current Alcohol Intake frequency: holidays/special occasions only Alcohol type: beer Drug use: Never Substance use type: does not use Adopted: No Caregiver/Support person: No Foster care: No Household members: none Housing: house Number of Children: 0 number of grandchildren: 0 Communication Needs: None Education Level: high school Do you need help understanding health information?: Rarely current occupation: [employer] Pets and animals: No Sexually active: No Do you think of yourself as: straight/heterosexual Current gender identity: male What is your relationship status?: How often do you talk on the phone with friends or family?: once per week How often do you get together with friends or relatives?: once per week How often do you attend adventism or spiritism services?: decline to answer Do you belong to any clubs or organized social groups?: no Panel score (0-1 are the most socially isolated patients): 0 What type of physical activity do you participate in: running Duration: 15-30 minutes/day Frequency: 1-2 times per week Valeri/Yarsani: Religious Seatbelt use: always Helmet use: Yes Helmet use: never Drive intox or ride w/intox route driver salesperson: No Water heater temp set <120 deg: Yes Working smoke detector in home: Yes Carbon monox detector in home: Yes Do you feel safe at home: Yes Do you feel safe in your relationship?: Yes Time Spent with Patient Time Spent with Patient: <45 minutes Time was spent: preparing to see the patient(eg.review tests), counseling the patient and care coordination
--- NOTE | 2025-04-17 13:52 | W.PM.PROGNOT ---
Date of Service Date of service: 04/17/25 Time of Service: 13:52 Assessment and Plan Assessment and plan (1) Incarcerated left inguinal hernia: Status: Acute Assessment and plan: Discharge home today with instructions and outpatient follow-up. Subjective Subjective Interval history since last seen: Jason is feeling a little better this afternoon. He tolerated lunch without any nausea or vomiting. Pain has been well-controlled. Exam GI Other: Abdomen is soft and nondistended. Incisions are all clean. No signs of infection. Objective Last Vital Signs Temp 97.7 F 04/17/25 08:22 Pulse 56 L 04/17/25 08:22 Resp 17 04/17/25 08:22 BP 112/65 04/17/25 08:22 Pulse Ox 99 04/17/25 08:22 Time Spent with Patient Time Spent with Patient: <25 minutes Time was spent: preparing to see the patient(eg.review tests), referring, communicating with other health healthcare management consultant, indepentently interpreting results, counseling the patient and care coordination
== END 2025-04-17 17:34 | disposition home or self-care (01) | DRG 351 ==
LOC: ER 11:25 → SUR 14:30 → MS 17:36
PROVIDERS: Admitting Provider Surgery; Emergency Provider Registered Nurse Emergency; PCP Nurse Practitioner Adult Health; Visit Provider Surgery
PROC: 0YU60JZ Supplement Left Inguinal Region with Synthetic Substitute, Open Approach (ICD-10-PCS; CPT 49650; principal; 2025-04-15 14:20)
DX: K40.30 Unilateral inguinal hernia, with obstruction, without gangrene, not specified as recurrent (principal); N13.8 Other obstructive and reflux uropathy; E78.5 Hyperlipidemia, unspecified; I25.10 Atherosclerotic heart disease of native coronary artery without angina pectoris; K21.9 Gastro-esophageal reflux disease without esophagitis; Z95.1 Presence of aortocoronary bypass graft; R73.01 Impaired fasting glucose; N40.1 Benign prostatic hyperplasia with lower urinary tract symptoms
CPT/HCPCS: 49507; 36415; 80048; 80053; 96374; 99285; 74177; 81003; 81015; 83735; 85025; 85610; 85730; C1781; J0131; J0690; J1100; J1885; J2003; J2405; J2543; J2704; J3010; J3490

== ENCOUNTER 2025-04-19 14:58 | Outpatient (CLI) | payer OTHER, SELFPAY ==
[2025-04-19 22:24] LABS: PSA, Diagnostic 1.0 ng/mL (<=4.5)
== END 2025-04-19 14:59 | disposition home or self-care (01) ==
LOC: LBO 14:58
PROVIDERS: PCP Nurse Practitioner Adult Health; Visit Provider Nurse Practitioner Adult Health
DX: N40.1 Benign prostatic hyperplasia with lower urinary tract symptoms (principal); N13.8 Other obstructive and reflux uropathy; R39.89 Other symptoms and signs involving the genitourinary system
CPT/HCPCS: 36415; 84153

== ENCOUNTER → 2025-08-08 12:37 | Outpatient (CLI) | payer OTHER, SELFPAY ==
--- NOTE | 2025-08-08 12:15 | DI.RAD_ITS ---
Exam(s) XR KNEE RT 3V AP,LAT,TIMOTHY EXAM: XR KNEE RT 3V AP,LAT,TIMOTHY CLINICAL HISTORY: ? avulsion,internal derangement rt knee, m23.91. TECHNIQUE: 2D digital imaging was performed of the right knee. Three views obtained. AP, lateral and PA tunnel views were obtained. COMPARISON: There are no priors for comparison. FINDINGS: BONES: No acute fracture is present. No bony destructive lesion is seen. There is an enthesophyte at the anterior patella. JOINTS: The knee is normally aligned. There is a joint effusion. SOFT TISSUE: Atherosclerotic calcification is present. IMPRESSION: 1. No acute fracture or dislocation is seen. 2. There is a joint effusion. If there is concern for internal derangement, an MRI should be considered for further evaluation. DATA REPOSITORY: RADIATION DOSE DELIVERED:
== END ==
PROVIDERS: PCP Nurse Practitioner Adult Health; Visit Provider Family Medicine
DX: M23.91 Unspecified internal derangement of right knee (principal)
CPT/HCPCS: 73562